=== PATIENT | male | born 1965 | race Caucasian/White ===

== ENCOUNTER 2018-12-30 14:35 | Emergency (ER) | payer BC ==
[~2018-12-30] VITALS: Ht 175.3 cm; Wt 95.0 kg
[2018-12-30] MEDS ORDERED: ONDANSETRON HCL 4MG/2ML INJ IV STA (15:20)
[2018-12-30] MEDS ORDERED: SODIUM CHLORIDE 0.9% 1,000 ML IV ONE ×2 (15:20→17:10)
[2018-12-30 15:45] LABS: CHLORIDE 99 mEq/L (98-107)
[2018-12-30 15:49] LABS: ETHANOL BLOOD < 10 mg/dL
[2018-12-30 15:50] LABS: BASOPHILS % 0.4 % (0.0-2.0); EOSINOPHILS % 0.6 % (0.0-5.0); HEMATOCRIT. 42.8 % (42.0-52.0); HEMOGLOBIN. 14.9 g/dL (14.0-18.0); LYMPHOCYTES % 11.5 % (20.0-50.0); MEAN CORPUSCULAR VOLUME 92.1 fL (80.0-94.0); MEAN PLATELET VOLUME 9.9 fl (7.4-10.4); MONOCYTES % 9.1 % (2.0-8.0); NEUTROPHILS % 78.4 % (40.0-76.0); PLATELET 138 x1000/uL (130-400); RED BLOOD CELL COUNT 4.64 mill/uL (4.7-6.1); RED CELL DISTRIBUTION WIDTH 13.4 % (11.6-14.6)
[2018-12-30 17:00] VITALS: BP 105/64
[2018-12-30 17:43] LABS: CLARITY URINE CLEAR (CLEAR); COLOR URINE YELLOW (YELLOW); KETONES URINE NEGATIVE (NEGATIVE); LEUKOCYTE ESTERASE URINE NEGATIVE (NEGATIVE); NITRITE URINE NEGATIVE (NEGATIVE); OCCULT BLOOD URINE NEGATIVE (NEGATIVE); PROTEIN URINE 2+ (NEGATIVE)
[2018-12-30 17:53] LABS: *AMPHETAMINES SCREEN URINE NEGATIVE (NEGATIVE); *BARBITURATES SCREEN URINE NEGATIVE (NEGATIVE); *BENZODIAZEPINES SCREEN URINE NEGATIVE (NEGATIVE)
[2018-12-30 17:55] LABS: *COCAINE SCREEN URINE NEGATIVE (NEGATIVE); CANNABINOID URINE SCREEN NEGATIVE (NEGATIVE); METHADONE URINE SCREEN NEGATIVE (NEGATIVE); OPIATES URINE SCREEN NEGATIVE (NEGATIVE)
[2018-12-30 17:58] LABS: PHENCYCLIDINE URINE SCREEN NEGATIVE (NEGATIVE)
== END 2018-12-30 19:26 | disposition home or self-care (01) ==
LOC: ER 14:35
DX: R79.89 Other specified abnormal findings of blood chemistry (principal); R42 Dizziness and giddiness; E11.9 Type 2 diabetes mellitus without complications; I10 Essential (primary) hypertension
CPT/HCPCS: 36415; 71045; 80053; 80305; 80320; 81003; 84484; 85025; 93005; 96361; 96374; 99284; J2405; J7030; Z7610; G0480

== ENCOUNTER 2019-10-03 11:48 | Emergency (ER) | payer BC ==
[~2019-10-03] VITALS: Ht 175.3 cm; Wt 100.0 kg
[2019-10-03 12:37] LABS: BASOPHILS % 0.8 % (0.0-2.0); EOSINOPHILS % 2.7 % (0.0-5.0); HEMATOCRIT. 39.5 % (42.0-52.0); HEMOGLOBIN. 13.5 g/dL (14.0-18.0); LYMPHOCYTES % 34.8 % (20.0-50.0); MEAN CORPUSCULAR HEMOGLOBIN 31.9 pg (28.0-32.0); MEAN CORPUSCULAR VOLUME 93.5 fL (80.0-94.0); MEAN PLATELET VOLUME 8.7 fl (7.4-10.4); MONOCYTES % 6.8 % (2.0-8.0); NEUTROPHILS % 54.9 % (40.0-76.0); PLATELET 98 x1000/uL (130-400); RED BLOOD CELL COUNT 4.23 mill/uL (4.7-6.1); RED CELL DISTRIBUTION WIDTH 14.3 % (11.6-14.6)
[2019-10-03 12:44] LABS: CHLORIDE 105 mEq/L (98-107)
[2019-10-03 13:07] LABS: ETHANOL BLOOD 348 mg/dL
[2019-10-03 14:53] VITALS: BP 137/69
== END 2019-10-03 14:58 | disposition home or self-care (01) ==
LOC: ER 11:59
DX: F10.129 Alcohol abuse with intoxication, unspecified (principal); Y90.8 Blood alcohol level of 240 mg/100 ml or more; E11.9 Type 2 diabetes mellitus without complications; I10 Essential (primary) hypertension
CPT/HCPCS: 36415; 71045; 80053; 80320; 83880; 84484; 85025; 93005; 99285; G0480